=== PATIENT | female | born 1970 | race Caucasian/White ===

== ENCOUNTER → 2020-11-10 | Outpatient (REF) | payer BC ==
[2020-11-10 16:58] LABS: BASO # 0.1 10^3/uL (0.0-0.2); BASO % 0.9 % (0.0-1.0); EOS # 0.3 10^3/uL (0.0-0.5); EOS % 2.8 % (0.0-3.0); HEMATOCRIT 46.5 % (36.0-47.0); HEMOGLOBIN 14.6 g/dl (12.0-15.5); LYMPH # 2.3 10^3/uL (1.5-5.0); LYMPH % 21.9 % (24.0-44.0); MEAN CORPUSCULAR HEMOGLOBIN 30.7 pg (27.0-33.0); MEAN CORPUSCULAR HGB CONC 31.4 g/dl (32.0-36.5); MEAN CORPUSCULAR VOLUME 97.7 fl (80.0-96.0); MONO # 0.7 10^3/uL (0.0-0.8); MONO % 6.7 % (0.0-5.0); NEUTROPHILS % 67.4 % (36.0-66.0); PLATELET COUNT, AUTOMATED 308 10^3/uL (150-450); RED BLOOD COUNT 4.76 10^6/uL (4.00-5.40); WHITE BLOOD COUNT 10.4 10^3/uL (4.0-10.0)
[2020-11-10 17:13] LABS: AMORPHOUS SEDIMENT SMALL (NEGATIVE); APPEARANCE, URINE TURBID (CLEAR); BACTERIA, URINE AUTO 1+ (NEGATIVE); BILIRUBIN, URINE AUTO NEGATIVE (NEGATIVE); BLOOD, URINE BLOOD NEGATIVE (NEGATIVE); COLOR, URINE AMBER (YELLOW); GLUCOSE, URINE (UA) AUTO NEGATIVE (NEGATIVE); KETONE, URINE AUTO TRACE mg/dL (NEGATIVE); LEUKOCYTE ESTERASE, URINE AUTO NEGATIVE (NEGATIVE); MUCUS, URINE SMALL (NEGATIVE); NITRITE, URINE AUTO NEGATIVE (NEGATIVE); PROTEIN, URINE AUTO NEGATIVE (NEGATIVE); RBC, URINE AUTO 3 /HPF (0-3); SPECIFIC GRAVITY URINE AUTO 1.023 (1.002-1.035); SQUAMOUS EPITHELIAL CELL UR AU 3 /HPF (0-6); WBC, URINE AUTO 1 /HPF (0-3)
[2020-11-10 17:24] LABS: ERYTHROCYTE SEDIMENTATION RATE 6 mm/hr (0-20)
[2020-11-10 17:25] LABS: ALBUMIN 4.4 GM/DL (3.2-5.2); ALT/SGPT 31 U/L (12-78); BILIRUBIN,TOTAL 0.3 MG/DL (0.2-1.0); BLOOD UREA NITROGEN 15 MG/DL (7-18); CALCIUM LEVEL 9.8 MG/DL (8.5-10.1); CARBON DIOXIDE LEVEL 31 MEQ/L (21-32); CHLORIDE LEVEL 103 MEQ/L (98-107); COMPLEMENT C3 116 MG/DL (90-180); COMPLEMENT C4 27 MG/DL (10-40); CPK CREATINE PHOSPHOKINASE 234 U/L (26-192); CREATININE FOR GFR 1.16 MG/DL (0.55-1.30); GLOMERULAR FILTRATION RATE 52.9 (>58); GLUCOSE, FASTING 151 MG/DL (70-100); POTASSIUM SERUM 4.5 MEQ/L (3.5-5.1); RHEUMATOID FACTOR QUANT < 10.0 IU/ML (<15.0); SODIUM LEVEL 138 MEQ/L (136-145); TOTAL PROTEIN 7.6 GM/DL (6.4-8.2)
[2020-11-10 17:42] LABS: HEPATITIS B SURFACE ANTIGEN NEGATIVE (NEGATIVE)
[2020-11-10 18:29] LABS: HEPATITIS C VIRUS ABY INDEX < 0.0 INDEX (<0.8)
[2020-11-14 10:07] LABS: ANA (HEP2) Negative (.); CYCLIC CITRULLINATED PEPTIDE 2 units (0-19); HEPATITIS B CORE ANTIBODY IGG Negative (Negative)
[2020-11-14 12:03] LABS: ALBUMIN 4.95 GM/DL (3.29-5.55); ALBUMIN % 65.1 % (55.8-66.1); ALPHA-1-GLOBULIN % 3.8 % (2.9-4.9); ALPHA-2-GLOBULINS % 10.8 % (7.1-11.8); BETA-1-GLOBULINS % 6.5 % (4.7-7.2); BETA-2-GLOBULINS % 4.1 % (3.2-6.5); GAMMA GLOBULIN % 9.7 % (11.1-18.8)
[2020-11-14 12:04] LABS: ALPHA-1-GLOBULINS 0.29 GM/DL (0.17-0.41); ALPHA-2-GLOBULINS 0.82 GM/DL (0.42-0.99); BETA-1-GLOBULINS 0.49 GM/DL (0.28-0.60); BETA-2-GLOBULINS 0.31 GM/DL (0.19-0.55); GAMMA GLOBULINS 0.74 GM/DL (0.65-1.58)
== END ==
LOC: M SFHCRHEU 09:43
PROVIDERS: ATTEND Internal Medicine
DX: I73.81 Erythromelalgia (principal)

== ENCOUNTER 2023-09-03 06:19 | Day surgery (SDC) | payer BC ==
[~2023-09-03] VITALS: Ht 167.6 cm; Wt 105.2 kg
[~2023-09-03 06:19] MED LIST: ATOR1TAB21 PO; CITA20TA6 PO; CYAN500T14 PO; CYCLOPENTOLATE 1% OPHTH SOLN 2ML BTL OD SCH; GABA-284 PO; GLIP5TAB20 PO; METF10004 PO; OFLOXACIN 0.3 % (OCUFLOX) OPTH SOL 5ML OD SCH; PHENYLEPHRINE 2.5% OPHTH SOL 2ML OD SCH; PROPARACAINE 0.5% OPHTH SOL 15ML OD ONE; TRAM50TA2 PO; TROPICAMIDE 1% OPHTH SOLN 15ML OD SCH; VITMTA PO; vitamin b12 IM
[2023-09-03] MEDS ORDERED: LIDOCAINE 1% SDV 5ML VIAL As Ordered ONE (06:40)
[2023-09-03] MEDS ORDERED: BSS IRR 500ML/OMIDRIA 4ML IRR BAG (OR ONLY) As Ordered ONE (06:40)
[2023-09-03] MEDS ORDERED: CEFUROXIME 1MG/0.1ML INTRACAMERAL INJ As Ordered ONE (06:40)
[2023-09-03] MEDS ORDERED: MIDAZOLAM INJ 2MG/2ML VIAL As Ordered ONE (07:19)
[2023-09-03] MEDS ORDERED: fentaNYL 100 MCG/2 ML INJECTION As Ordered ONE (07:19)
[2023-09-03 08:04] VITALS: BP 124/78; TEMP 97.4; O2SAT 99
== END 2023-09-03 08:22 | disposition home or self-care (01) ==
LOC: M SDC 06:19
PROVIDERS: ATTEND Ophthalmology
DX: H25.11 Age-related nuclear cataract, right eye (principal); E78.5 Hyperlipidemia, unspecified; E11.9 Type 2 diabetes mellitus without complications; G47.33 Obstructive sleep apnea (adult) (pediatric); Z79.84 Long term (current) use of oral hypoglycemic drugs; Z79.899 Other long term (current) drug therapy; F17.218 Nicotine dependence, cigarettes, with other nicotine-induced disorders
CPT/HCPCS: 66984; J0697; J1097; J2250; J3010; V2788